=== PATIENT | female | born 1945 | race Caucasian/White ===

== ENCOUNTER 2022-08-02 08:18 | Emergency (ER) | payer MEDICARE, SELFPAY ==
--- NOTE | 2022-08-02 09:05 | EXP.UTC ---
Discharge Plan Disposition Patient Disposition: Home, Self-Care Condition: Good Prescriptions Prescriptions: New hydroxyzine HCl 10 mg tablet 10 mg PO Q6H PRN (Reason: anxiety) Qty: 30 0RF lisinopril 5 mg tablet 5 mg PO DAILY Qty: 30 0RF Referrals Follow up/Referrals: Aiden Fernandez MD [Primary Care Provider] - See instructions Activity Restrictions/Add. Instructions Additional Instructions/Restrictions: Take the medications as directed. The vistaril (hydroxyzine) will make you drowsy, so don't drive or operate heavy machinery after taking it. It will help with anxiety and it should help you go to sleep. Follow up with your regular doctor. Call on Thursday to get an appointment. GO TO THE ER FOR ANY WORSENING SYMPTOMS Clinical Impressions Clinical Impression: Elevated blood pressure reading, Stress reaction Instructions Patient Instructions: Essential Hypertension, DI for Anxiety -- Adult Discharge ED Provider: Matthias Gibbs [facility] General Stated complaint: High Blood Pressure Time Seen by Provider: 08/02/22 09:05 History of Present Illness Provider Complaint: She is here with c/o of elevated blood pressure and stress/anxiety. Her is sick and she is under a lot of stress. Related Data Previous Rx's Medication Instructions Recorded hydroxyzine HCl 10 mg tablet 10 mg PO Q6H PRN anxiety #30 tabs 08/02/22 lisinopril 5 mg tablet 5 mg PO DAILY #30 tabs 08/02/22 Allergies Allergy/AdvReac Type Severity Reaction Status Date / Time Sulfa (Sulfonamide Allergy Verified 08/02/22 09:20 Antibiotics) [facility] Disclaimer: The information contained in this section may have been updated after the patient was seen, as this information can be updated by other users. Social History Smoking Status: Never smoker alcohol intake: never current occupational status: retired Travel in the last 8 weeks: None ROS Obtained: Yes All systems reviewed & no additional complaints except as documented Constitutional Constitutional: Denies chills and Denies fever(s) Eyes Eyes: Denies eye discharge ENT Ears, Nose, Mouth, and Throat: Denies dizziness, Denies otalgia and Denies sore throat Cardiovascular Cardiovascular: Denies chest pain Respiratory Respiratory: Denies shortness of breath, Denies chest congestion, Denies cough, Denies stridor and Denies wheezing Gastrointestinal Gastrointestingal: Denies nausea or vomiting Musculoskeletal Musculoskeletal: Reports system reviewed and no additional complaints, except as documented and Denies arthralgias Integumentary/Breasts Skin/Breast: Denies rash Neurologic Neurologic: Denies dizziness and Denies paresthesias Allergic/Immunologic Allergic/Immunologic: Denies wheezing Physical Exam General General appearance: alert and in no apparent distress Head Head exam: atraumatic, normocephalic and normal inspection Eye Eye exam: Present normal appearance, PERRL and EOMI ENT ENT exam: Present normal exam, normal oropharynx, mucous membranes moist, TM's normal bilaterally and normal external ear exam Neck Neck exam: Present normal inspection, full ROM and trachea midline; Absent meningismus or lymphadenopathy Chest Chest inspection: Present normal inspection and symmetric chest wall rise; Absent tenderness Respiratory Respiratory exam: Present normal lung sounds bilaterally; Absent respiratory distress Cardiovascular Cardiovascular exam: Present regular rate and normal rhythm; Absent JVD Abdominal Exam Abdominal exam: Present soft and normal bowel sounds; Absent distention, tenderness or guarding Extremities Exam Extremities exam: Present normal inspection, full ROM and normal capillary refill; Absent calf tenderness Back Exam Back exam: Present normal inspection; Absent tenderness Neurological Exam Neurological exam: Present alert and oriented X3 Psychiatric Psychiatric exam: Present n
[2022-08-02 09:17] VITALS: BP 146/85; PULSE 102; RESP 16; TEMP 36.7; O2SAT 97; BMI 25.7
[2022-08-02 09:49] VITALS: BP 146/85; PULSE 102; RESP 16; TEMP 36.7
== END 2022-08-02 09:58 | disposition home or self-care (01) ==
PROVIDERS: Emergency Provider Nurse Practitioner Family; PCP Family Medicine
DX: R03.0 Elevated blood-pressure reading, without diagnosis of hypertension (principal); F43.9 Reaction to severe stress, unspecified; F41.9 Anxiety disorder, unspecified; Z79.899 Other long term (current) drug therapy; Z88.2 Allergy status to sulfonamides
CPT/HCPCS: 99212; G0463